=== PATIENT | male | born 1985 | race Caucasian/White ===

== ENCOUNTER 2016-08-01 19:58 | Inpatient (IN) | payer OTHER, MEDICAID ==
--- NOTE | 2016-08-01 20:07 | ED Physician Documentation ---
PD HPI ABD PAIN - Stated complaint Stated Complaint: SEVERE ABD PAIN - Chief complaint Chief Complaint: Abd Pain - History obtained from History obtained from: Patient - History of Present Illness Timing - onset: Last night (onset about 3 am last night of upper abd pain, fullness and nausea. Pain improves with vomiting) Timing - duration: Hours (about 16 hours) Timing - details: Abrupt onset, Still present Quality: Cramping, Aching, Fullness/distended, Pain Location: Other (mid upper abdomen mainly, with some feeling of bloating upper abdomen.) Radiation: No: Chest, Left flank, Right flank Improved by: Vomiting (relieves it temporarily) Worsened by: Eating (has been able to drink some fluids, but it does increase bloating. Has not eaten today.) Associated symptoms: Nausea, Vomiting. No: Fever, Hematemesis, Diarrhea, Constipation, Dysuria Similar symptoms before: Has not had sx before Recently seen: Not recently seen Review of Systems Constitutional: denies: Fever, Chills Nose: denies: Rhinorrhea / runny nose, Congestion Throat: denies: Sore throat Respiratory: denies: Cough GI: reports: Abdominal Pain, Abdominal Swelling, Nausea, Vomiting. denies: Constipation, Diarrhea, Bloody / black stool : denies: Dysuria, Frequency Skin: denies: Rash, Lesions Neurologic: reports: Generalized weakness. denies: Focal weakness, Numbness, Near syncope Endocrine: denies: Weight loss Immunocompromised: denies: Immunocompromised PD PAST MEDICAL HISTORY - Past Medical History Cardiovascular: None Respiratory: None Neuro: None Endocrine/Autoimmune: None GI: Other (had colonscopy several years ago for nonspecific abd pain, and finding of polyps only. No other problem. ) - Present Medications Home Medications: Ambulatory Orders Medication Instructions Recorded Confirmed No Known Home Medications [No 08/01/16 08/01/16 Known Home Medications] - Allergies Allergies/Adverse Reactions: Allergies Allergy/AdvReac Type Severity Reaction Status Date / Time No Known Drug Allergies Allergy Verified 08/01/16 20:04 PD ED PE NORMAL - Vitals Vital signs reviewed: Yes - General General: Alert and oriented X 3, Well developed/nourished, Other (appears in pain. Pale colored. Vomited during exam. ) - HEENT HEENT: PERRL (nonicteric), Pharynx benign. No: Moist mucous membranes - Neck Neck: Supple, no meningeal sign, No adenopathy - Cardiac Cardiac: RRR, No murmur - Respiratory Respiratory: Clear bilaterally - Abdomen Abdomen: No organomegaly, Other (some fullness of upper abdomen, with marked tenderness mid upper abdomen/epigastric area. Lower abd not tender. Bowel sounds increased in upper abdomen. No herniae noted umbilical nor inguinal. No abd scars seen. ) - Male Male : Deferred - Rectal Rectal: Deferred - Back Back: No CVA TTP - Derm Derm: Warm and dry, No rash, Other (pallor) - Extremities Extremities: No tenderness to palpate, No edema, No calf tenderness / cord - Neuro Neuro: Alert and oriented X 3, No motor deficit, Normal speech - Psych Psych: Normal mood, Normal affect Results - Vitals Vitals: Vital Signs - 24 hr 08/01/16 08/01/16 08/01/16 20:00 21:13 22:05 Temperature 36.0 C L Heart Rate 80 78 83 Respiratory 16 16 16 Rate Blood Pressure 140/91 H 126/79 100/62 O2 Saturation 100 99 98 Oxygen O2 Source Room air - Labs Labs: Laboratory Tests 08/01/16 08/01/16 08/01/16 20:20 20:20 20:20 WBC 14.3 H RBC 5.73 Hgb 16.2 Hct 49.0 MCV 85.4 MCH 28.3 MCHC 33.1 RDW 13.5 Plt Count 303 MPV 8.4 Neut # 12.5 H Lymph # 0.9 L [place] # 0.9 Eos # 0.0 Baso # 0.0 Absolute Nucleated RBC 0.00 Nucleated RBCs 0.0 Sodium 139 Potassium 4.0 Chloride 100 L Carbon Dioxide 26 Anion Gap 13.0 BUN 19 Creatinine 1.1 Estimated GFR (MDRD) 78 L Glucose 132 H Calcium 10.4 H Total Bilirubin 0.9 AST 37 ALT 32 Alkaline Phosphatase 78 Total Protein 9.4 H Albumin 5.3 Globulin 4.1 Albumin/Globulin Ratio 1.3 Lipase 42 H. pylori IgG Antibody Negative - Rads (name of study) abd CT Radiology: Prelim report reviewed (small bowel obstruction with transition in mid small bowel near pelvis. No perforation/free air. ) PD MEDICAL DECISION MAKING - ED course Complexity details: reviewed results, re-evaluated patient (pain improved with meds and fluids, but stock drier tender and some distension upper abdomen. ), considered differential, d/w patient, d/w family, d/w ent consultant (Dr. Mariee, automation qtp tester Surgery, who will come in and see the patient. ) Departure - Departure Disposition: 66 [facility] DC/Xfer Clinical Impression: Small bowel obstruction Abdominal pain Qualifiers: Abdominal location: upper abdomen, unspecified Qualified Code(s): R10.10 - Upper abdominal pain, unspecified Vomiting Qualifiers: Vomiting type: unspecified Vomiting Intractability: intractable Nausea presence : with nausea Qualified Code(s): R11.2 - Nausea with vomiting, unspecified Condition: Stable Record reviewed to determine appropriate education?: Yes
[2016-08-01] MEDS ORDERED: ONDANSETRON 4 MG/2 ML VIAL IVP STA (20:24)
[2016-08-01] MEDS ORDERED: SODIUM CHLORIDE 0.9% 1,000 ML IV ONE ×4 (20:24→21:55)
[2016-08-01] MEDS ORDERED: HYDROmorphone 1 MG/ML SYRINGE IVP STA ×2 (20:25→21:48)
[2016-08-01 20:31] LABS: BASOPHILS % (AUTO) 0.1 %; HGB - HEMOGLOBIN 16.2 g/dL (14.0-18.0); LYMPHOCYTES # (AUTO) 0.9 10^3/uL (1.5-3.5); LYMPHOCYTES % (AUTO) 6.1 %; MEAN CORPUSCULAR HEMOGLOBIN 28.3 pg (27.0-31.0); MEAN CORPUSCULAR HGB CONC 33.1 g/dL (32.0-36.0); MEAN CORPUSCULAR VOLUME 85.4 fL (80.0-94.0); MEAN PLATELET VOLUME 8.4 fL (7.4-11.4); MONOCYTES # (AUTO) 0.9 10^3/uL (0.0-1.0); MONOCYTES % (AUTO) 6.2 %; NEUTROPHILS # (AUTO) 12.5 10^3/uL (1.5-6.6); NEUTROPHILS % (AUTO) 87.6 %; RED BLOOD COUNT 5.73 10^6/uL (4.70-6.10); RED CELL DISTRIBUTION WIDTH 13.5 % (12.0-15.0); UNCORRECTED WHITE BLOOD COUNT 14.3 x10^3/uL; WHITE BLOOD COUNT 14.3 x10^3/uL (4.8-10.8)
[2016-08-01] MEDS ORDERED: HYDROmorphone 1 MG/ML SYRINGE ONE ×2 (20:35→21:55)
[2016-08-01] MEDS ORDERED: ONDANSETRON 4 MG/2 ML VIAL ONE (20:36)
[2016-08-01] MEDS ORDERED: SODIUM CHLORIDE FLUSH 0.9% 10 ML SYRINGE IVP ONE ×2 (20:36→21:55)
[2016-08-01 20:41] LABS: ALBUMIN/GLOBULIN RATIO 1.3 (1.0-2.2); BILIRUBIN,TOTAL 0.9 mg/dL (0.2-1.0); CALCIUM 10.4 mg/dL (8.5-10.3); CREATININE 1.1 mg/dL (0.6-1.2); TOTAL PROTEIN 9.4 g/dL (6.7-8.2)
[2016-08-01 20:45] LABS: H. PYLORI IGG ANTIBODY Negative (Negative); HPYLORI NEG QC Negative (Negative); HPYLORI POS QC POSITIVE (Positive)
[2016-08-01] MEDS ORDERED: IOPAMIDOL-300 100 ML VIAL IVP ONE (21:09)
--- NOTE | 2016-08-01 21:51 | CT Preliminary Report ---
Exam: CT Abdomen/Pelvis W/ IMPRESSION: Mid to distal small bowel obstruction with transition point in the mid pelvis. Small amou nt of free fluid in the pelvis. [facility] SITE ID: [id number]
--- NOTE | 2016-08-01 21:53 | CT Report ---
EXAM: CT ABDOMEN AND PELVIS EXAM DATE: 08/01/2016 09:12 PM. CLINICAL HISTORY: Upper abdomen pain abruptly today. COMPARISONS: None. TECHNIQUE: Routine helical CT imaging was performed through the abdomen and pelvis. IV contrast: 100 cc of Isovue-300. Enteric contrast: No. Reconstructions: Coronal and sagittal. In accordance with CT protocol optimization, one or more of the following dose reduction techniques w ere utilized for this exam: automated exposure control, adjustment of mA and/or KV based on patient s ize, or use of iterative reconstructive technique. FINDINGS: Lung Bases: Unremarkable. Liver: Normal. No masses. Gallbladder/Bile Ducts: Unremarkable. Spleen: Normal. Pancreas: Normal. Adrenal Glands: Normal. Kidneys: Normal. No masses or hydronephrosis. Peritoneal Cavity/Bowel: Dilated small bowel with transition to decompressed distal ileum and the mid pelvis. No free air or adenopathy. No masses or acute inflammatory process. The appendix is well vis ualized and normal. Pelvic Organs: Small amount of free fluid. Prostate and bladder are unremarkable. Vasculature: No aneurysms or other significant abnormality. Bones: No significant abnormality. Other: None. IMPRESSION: Mid to distal small bowel obstruction with transition point in the mid pelvis. Small amou nt of free fluid in the pelvis. [facility] Referring Provider Line: [phone] SITE ID: [id number]
[2016-08-01 22:52] LABS: INR 1.2 (0.8-1.2); PT - PROTHROMBIN TIME 13.2 secs (9.9-12.6)
--- NOTE | 2016-08-01 22:53 | HISTORY & PHYSICAL EXAMINATION ---
Chief Complaint - Chief Complaint Chief Complaint: Abdominal Pain History of Present Illness - Admitted From Admitted From:: ED - History Obtained From Records Reviewed: yes History obtained from: Patient and Patient's mother Exam Limitations: none - History of Present Illness HPI Comment/Other: 31 yo male with hx of Lower GI bleed with "benign polyps and hemorrhoid" found on colonoscopy 10 years ago in [place], C/o of 18 hours of sharp upper abdominal 8-10/10 non-radiating pain relieved with vomiting. Denies fevers. He took a vicodin which helped alittle at home. His last BM was early this am, and has not passed flatus since BM. No new foods or recent travels. 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 Denies any trauma growing up or recently, and mother states normal vaginal term delivery. Does have a same sex partner and states is monogamous and has only had this partner. Has never been tested for STD's Review of Systems - Constitutional Constitutional: denies: Fever - Eyes Eyes: reports: Corrective lenses. denies: Pain, Blurred vision - Ears, Nose & Throat Ears, Nose & Throat: denies: Hearing loss - Cardiovascular Cariovascular: denies: Chest pain - Respiratory Respiratory: denies: Cough, Wheezing, Hemoptysis, SOB at rest, SOB with exertion - Gastrointestinal Gastrointestinal: reports: Abdominal pain, Abdominal distention, Constipation, Vomiting, Bile emesis. denies: Diarrhea, Rectal bleeding, Bloody stools, Coffee grounds emesis - Genitourinary Genitourinary: denies: Dysuria, Urgency - Musculoskeletal Musculoskeletal: denies: Muscle pain - Integumentary Integumentary: denies: Rash - Psychiatric Psychiatric: denies: Depression, Anxiety - Endocrine Endocrine: denies: Polyuria, Polydypsia - Hematologic/Lymphatic Hematologic/Lymphatic: denies: Anemia - All Other Systems All Other Systems: reports: Reviewed and negative History - Past Medical History Cardiovascular: reports: None Respiratory: reports: None Neuro: reports: None Endocrine/Autoimmune: reports: None GI: reports: GI bleed, Colon polyps, Other (had colonscopy several years ago for nonspecific abd pain, and finding of polyps only. No other problem. ) HEENT: reports: None Psych: reports: None Musculoskeletal: reports: None Derm: reports: None MRSA Hx?: No Other Past Medical History: Pt report past hx of rectal bleeding of unknown cause - Past Surgical History General: reports: Colonoscopy - Family & Social History Family History: Mother: Alive and Well Family History Comment/Other: Mother denies any family history of Crohn's or UC, states Patients's ethnicity is mixed with Anabaptism & [place] Ancestry Meds/Allgy - Home Medications Home Medications: Ambulatory Orders Medication Instructions Recorded Confirmed No Known Home Medications [No 08/01/16 08/01/16 Known Home Medications] - Allergies Allergies/Adverse Reactions: Allergies Allergy/AdvReac Type Severity Reaction Status Date / Time No Known Drug Allergies Allergy Verified 08/01/16 20:04 Exam - Vital Signs Reviewed Vital Signs: Yes Vital Signs: Vital Signs x48h Temp Pulse Resp BP Pulse Ox 08/01/16 22:05 83 16 100/62 98 08/01/16 21:13 78 16 126/79 99 08/01/16 20:00 36.0 C L 80 16 140/91 H 100 - Physical Exam General Appearance: positive: Mild distress Eyes Bilateral: positive: EOMI ENT: positive: Dry mucous membranes Neck: positive: No JVD Respiratory: positive: Breath sounds nml Cardiovascular: positive: Regular rate & rhythm Peripheral Pulses: positive: 2+ Abdomen: positive: Tenderness (+hyper active BS, Distended, + Rebound & Guarding - Peritoneal abdomen, No Previous surgical scars noted. No hernias palpated) Rectal: positive: Non-tender, Stool - heme NEG (Scant stool in vault). negative : Hemorrhoid Back: negative: CVA tenderness (R), CVA tenderness (L) Skin: positive: Warm, Dry Extremities: positive: Non-tender. negative: Pedal edema, Calf tenderness, Ajki's sign/cords Neurologic/Psychiatric: positive: Oriented x3, CN's nml (2-12) Reflexes: Knee (R): 2+, Knee (L): 2+, Ankle (R): 2+, Ankle (L): 2+ Conclusion/Plan - Problem List (1) Small bowel obstruction Conclusion/Plan: 31 yo male with small bowel obstruction with peritoneal signs without prior history of abdominal surgery NPO NGT to LWS LR@ 150 mL/hr OR today for Laparoscopy possible exploratory laparotomy, possible bowel resection , possible appendectomy, possible ostomy - Lab Results Lab results reviewed: Yes Fish Bones: 08/01/16 20:20 08/01/16 20:20 - Diagnostic Imaging Results Diagnostic Imaging Results: positive: Read contemporaneously (IMPRESSION: Mid to distal small bowel obstruction with transition point in the mid pelvis. Small amount of free fluid in the pelvis.) Issues/Core Measures - Anticipated LOS Anticipated Stay Length: 2 or more midnights - DVT/VTE - Prophylaxis VTE/DVT Device ordered at admit?: Yes VTE/DVT Prophylaxis med ordered at admit?: No Not Ordered - Medical Reason: Contraindicated (To Go to OR tonight)
[2016-08-01 22:59] LABS: PARTIAL THROMBOPLASTIN TIME 28.2 secs (24.9-33.3)
[2016-08-01] MEDS ORDERED: PHENYLEPHRINE 10 MG/ML VIAL IV ONE (23:45)
[2016-08-01] MEDS ORDERED: fentaNYL 100 MCG/2 ML VIAL IVP ONE (23:45)
[2016-08-01] MEDS ORDERED: DEXAMETHASONE 4 MG/ML VIAL IVP ONE (23:45)
[2016-08-01] MEDS ORDERED: ACETAMINOPHEN 1,000 MG/100 ML VIAL IV ONE (23:45)
[2016-08-01] MEDS ORDERED: NEOSTIGMINE 1 MG/1 ML 10 ML MDV IVP ONE (23:45)
[2016-08-01] MEDS ORDERED: SUCCINYLCHOLINE 200 MG/10 ML VIAL IVP ONE (23:45)
[2016-08-01] MEDS ORDERED: MIDAZOLAM 2 MG/2 ML VIAL IVP ONE (23:45)
[2016-08-01] MEDS ORDERED: GLYCOPYRROLATE 1 MG/5 ML VIAL IVP ONE (23:45)
[2016-08-01] MEDS ORDERED: ONDANSETRON 4 MG/2 ML VIAL IVP ONE (23:45)
[2016-08-01] MEDS ORDERED: LIDOCAINE-MPF 2% 5 ML VIAL IM ONE (23:45)
[2016-08-01] MEDS ORDERED: ROCURONIUM 50 MG/5 ML VIAL IVP ONE (23:45)
[2016-08-01] MEDS ORDERED: PROPOFOL 200 MG/20 ML VIAL IVP ONE (23:45)
[2016-08-02] MEDS ORDERED: LACTATED RINGERS 1,000 ML IV ONE ×2 (00:03→00:45)
[2016-08-02] MEDS ORDERED: SODIUM CHLORIDE 0.9% 1,000 ML IV ONE ×3 (00:03→01:46)
[2016-08-02 00:05] LABS: BILIRUBIN,URINE NEGATIVE (NEGATIVE)
[2016-08-02 00:14] LABS: WBC,URINE 0-3 /HPF (0-3)
[2016-08-02] MEDS ORDERED: BUPIVACAINE 0.5%-EPI 1:200000 PF 30 ML VIAL SUBQ ONE ×2 (00:25)
[2016-08-02] MEDS ORDERED: SODIUM CHLORIDE FLUSH 0.9% 10 ML SYRINGE IVP PRN (03:44)
[2016-08-02] MEDS ORDERED: ONDANSETRON 4 MG/2 ML VIAL IVP PRN (03:44)
[2016-08-02] MEDS ORDERED: MEPERIDINE 50 MG/ML SYRINGE ONE (03:47)
--- NOTE | 2016-08-02 04:01 | OPERATIVE REPORT ---
Operative Report - General Admit Date: 08/01/16 Procedure Date: 08/02/16 Planned Procedure: Laparoscopy, possible Exploratory Laparotomy, possible Appendectomy Pre-Op Diagnosis: Small Bowel Obstruction Post Op Diagnosis: Foramen of [place] Incarcerated Hernia - Procedure Note Primary Surgeon: Kodi DEAN Anesthesia Provider: Kevin Veras CRNA Anesthesia Technique: General ET tube Pathology: Bacterial cultures taken, Drain/Tube Type: positive: Alejandro Rosales round drain Complications: None - Other Other Information/Narrative: Please see dictated note
[2016-08-02] MEDS: LACTATED RINGERS 1,000 ML IV SCH ×4 (04:40→18:59)
[2016-08-02] MEDS: ACETAMINOPHEN 1,000 MG/100 ML 100 ML IV SCH ×4 (04:52→22:09)
[2016-08-02] MEDS: HYDROmorphone 1 MG/ML SYRINGE IVP PRN ×2 (04:52→06:43)
[2016-08-02] MEDS: SODIUM CHLORIDE FLUSH 0.9% 10 ML SYRINGE IVP SCH ×3 (05:24→18:59)
[2016-08-02] MEDS: HEPARIN 5,000 UNIT/ML VIAL SUBQ SCH ×3 (05:46→21:07)
[2016-08-02] MEDS ORDERED: SODIUM CHLORIDE FLUSH 0.9% 10 ML SYRINGE IVP SCH (06:00)
[2016-08-02 06:59] LABS: BASOPHILS % (AUTO) 0.2 %; HCT - HEMATOCRIT 44.7 % (42.0-52.0); HGB - HEMOGLOBIN 14.6 g/dL (14.0-18.0); LYMPHOCYTES % (AUTO) 2.9 %; MEAN CORPUSCULAR HEMOGLOBIN 28.4 pg (27.0-31.0); MEAN CORPUSCULAR HGB CONC 32.7 g/dL (32.0-36.0); MEAN CORPUSCULAR VOLUME 86.9 fL (80.0-94.0); MEAN PLATELET VOLUME 9.4 fL (7.4-11.4); MONOCYTES % (AUTO) 7.2 %; NEUTROPHILS % (AUTO) 89.7 %; RED BLOOD COUNT 5.14 10^6/uL (4.70-6.10); RED CELL DISTRIBUTION WIDTH 13.7 % (12.0-15.0)
[2016-08-02 07:06] LABS: CALCIUM 7.4 mg/dL (8.5-10.3); CREATININE 0.8 mg/dL (0.6-1.2); POTASSIUM 3.9 mmol/L (3.5-5.0)
[2016-08-02 07:36] LABS: BAND NEUTROPHILS % (MANUAL) 6 %; BASOPHILS % (MANUAL) 1 %; LYMPHOCYTES % (MANUAL) 5 %; NEUTROPHILS % (MANUAL) 78 %; TOTAL CELLS COUNTED 100
[2016-08-02 07:39] LABS: NP AUTO DIFFERENTIAL? YES; NP MAN DIFFERENTIAL? NO
[2016-08-02] MEDS: POLYETHYLENE GLYCOL 3350 17 GM PACKET PO SCH (08:07)
[2016-08-02] MEDS: FAMOTIDINE 20 MG/50 ML 50 ML IV SCH ×2 (08:10→21:43)
[2016-08-02] MEDS ORDERED: BENZOCAINE/MENTHOL LOZENGE MM PRN (11:35)
[2016-08-02] MEDS ORDERED: BENZOCAINE/TETRACAINE/BUTAMBEN 20 GM TOP PRN (11:36)
[2016-08-02] MEDS ORDERED: diphenhydrAMINE INJ 50 MG/ML VIAL IVP PRN (12:34)
[2016-08-02] MEDS ORDERED: MORPHINE PCA 50 MG IV PRN ×2 (12:34→14:39)
--- NOTE | 2016-08-02 13:47 | PROVIDER PROGRESS NOTE ---
Subjective - General Admit Date: 08/01/16 Procedure Date: 08/02/16 Post Op Days: 0 Procedure Performed: Laparoscopy, Exploratory Laparotomy with internal hernia reduction - Review of Systems Wound/Incisions: positive: Dressing dry and intact Drain Type: NAEL Drain Output Description: serosanguenous Approximate mls Output: 95 General: positive: No symptoms HEENT: positive: No symptoms Pulmonary: positive: No symptoms Cardiovascular: positive: No symptoms Gastrointestinal: positive: Abdominal pain (Post operative appropriate) Genitourinary: positive: No symptoms Musculoskeletal: positive: No symptoms Skin: positive: No symptoms Psychiatric: positive: No symptoms (Patient seen bedside. Using IS. Pain controlled. No flatus.) All Other Systems: positive: Reviewed and negative Objective - Patient Data Reviewed Vital Signs: Yes Vital Signs: Vital Signs x48h Temp Pulse Resp BP Pulse Ox 08/02/16 12:14 37.0 C 91 16 114/71 95 08/02/16 08:14 36.7 C 96 16 113/71 97 08/02/16 06:14 36.7 C 83 16 115/72 97 Intake & Output: Intake and Output Totals x24h 07/31/16 08/01/16 08/02/16 23:59 23:59 23:59 Intake Total 396 Output Total 1245 Balance -849 - Lab Results Lab Results: 08/02/16 06:20 08/02/16 06:20 Other Lab Results: Lab Results x24hrs 08/02/16 08/02/16 08/01/16 Range/Units 06:20 06:20 23:04 WBC 21.0 H (4.8-10.8) x10^3/uL RBC 5.14 (4.70-6.10) 10^6/uL Hgb 14.6 (14.0-18.0) g/dL Hct 44.7 (42.0-52.0) % MCV 86.9 (80.0-94.0) fL MCH 28.4 (27.0-31.0) pg MCHC 32.7 (32.0-36.0) g/dL RDW 13.7 (12.0-15.0) % Plt Count 249 (130-450) 10^3/uL MPV 9.4 (7.4-11.4) fL Neut # Not Reportable Lymph # Not Reportable [place] # Not Reportable Eos # Not Reportable Baso # Not Reportable Absolute Nucleated RBC Not Reportable Total Counted 100 Band Neuts % (Manual) 6 (0 - 10) % Reactive Lymphs % (Man) 2 % Neutrophils # (Manual) 17.6 H (1.5-6.6) 10^3/uL Lymphocytes # (Manual) 1.5 (1.5-3.5) 10^3/uL Monocytes # (Manual) 1.7 H (0.0-1.0) 10^3/uL Basophils # (Manual) 0.2 H (0-0.1) 10^3/uL Nucleated RBCs Not Reportable Differential Comment MANUAL DIFFERENTIAL Sodium 138 (135-145) mmol/L Potassium 3.9 (3.5-5.0) mmol/L Chloride 107 (101-111) mmol/L Carbon Dioxide 21 (21-32) mmol/L Anion Gap 10.0 (6-13) BUN 12 (6-20) mg/dL Creatinine 0.8 (0.6-1.2) mg/dL Estimated GFR (MDRD) 112 (>89) Glucose 139 H (70-100) mg/dL Lactic Acid (0.5-2.2) mmol/L Calcium 7.4 L (8.5-10.3) mg/dL Urine Color YELLOW Urine Clarity CLEAR (CLEAR) Urine pH 6.0 (5.0-7.5) PH Ur Specific [place] 1.015 (1.002-1.030) Urine Protein NEGATIVE (NEGATIVE) mg/dL Urine Glucose (UA) NEGATIVE (NEGATIVE) mg/dL Urine Ketones 40 H (NEGATIVE) mg/dL Urine Occult Blood MODERATE H (NEGATIVE) Urine Nitrite NEGATIVE (NEGATIVE) Urine Bilirubin NEGATIVE (NEGATIVE) Urine Urobilinogen 0.2 (NORMAL) (NORMAL) E.U./dL Ur Leukocyte Esterase NEGATIVE (NEGATIVE) Urine RBC 0-5 (0-5) /HPF Urine WBC 0-3 (0-3) /HPF Ur Squamous Epith Cells NONE SEEN (<= Few) Urine Bacteria None Seen (None Seen) /HPF Blood Type Antibody Screen 08/01/16 08/01/16 Range/Units 22:50 22:50 WBC (4.8-10.8) x10^3/uL RBC (4.70-6.10) 10^6/uL Hgb (14.0-18.0) g/dL Hct (42.0-52.0) % MCV (80.0-94.0) fL MCH (27.0-31.0) pg MCHC (32.0-36.0) g/dL RDW (12.0-15.0) % Plt Count (130-450) 10^3/uL MPV (7.4-11.4) fL Neut # Lymph # [place] # Eos # Baso # Absolute Nucleated RBC Total Counted Band Neuts % (Manual) (0 - 10) % Reactive Lymphs % (Man) % Neutrophils # (Manual) (1.5-6.6) 10^3/uL Lymphocytes # (Manual) (1.5-3.5) 10^3/uL Monocytes # (Manual) (0.0-1.0) 10^3/uL Basophils # (Manual) (0-0.1) 10^3/uL Nucleated RBCs Differential Comment Sodium (135-145) mmol/L Potassium (3.5-5.0) mmol/L Chloride (101-111) mmol/L Carbon Dioxide (21-32) mmol/L Anion Gap (6-13) BUN (6-20) mg/dL Creatinine (0.6-1.2) mg/dL Estimated GFR (MDRD) (>89) Glucose (70-100) mg/dL Lactic Acid 0.9 (0.5-2.2) mmol/L Calcium (8.5-10.3) mg/dL Urine Color Urine Clarity (CLEAR) Urine pH (5.0-7.5) PH Ur Specific [place] (1.002-1.030) Urine Protein (NEGATIVE) mg/dL Urine Glucose (UA) (NEGATIVE) mg/dL Urine Ketones (NEGATIVE) mg/dL Urine Occult Blood (NEGATIVE) Urine Nitrite (NEGATIVE) Urine Bilirubin (NEGATIVE) Urine Urobilinogen (NORMAL) E.U./dL Ur Leukocyte Esterase (NEGATIVE) Urine RBC (0-5) /HPF Urine WBC (0-3) /HPF Ur Squamous Epith Cells (<= Few) Urine Bacteria (None Seen) /HPF Blood Type O POSITIVE Antibody Screen NEGATIVE - Current Medications Current Medications: Current Medications Generic Name Dose Route Start Last Admin Trade Name Freq PRN Reason Stop Dose Admin Benzocaine/Butamben/Tetracaine HCl 2 sprays 08/02/16 11:36 08/02/16 11:47 Cetacaine [place] TOP 2 sprays Q6HR PRN Administration NEEDED PER PROVIDER ORDERS Heparin Sodium (Porcine) 5,000 unit 08/02/16 06:00 08/02/16 05:46 SUBQ Not Given TID IVELISSE Lactated Ringer's 1,000 mls @ 150 mls/hr 08/01/16 23:00 08/02/16 11:52 Lr IV Not Given .Q6H40M IVELISSE Famotidine 50 mls @ 100 mls/hr 08/02/16 09:00 08/02/16 08:10 Pepcid 20 Mg/50 Ml IV 100 mls/hr BID IVELISSE Administration Acetaminophen 100 mls @ 400 mls/hr 08/02/16 04:00 08/02/16 11:54 Ofirmev IV 400 mls/hr Q6H IVELISSE Administration Morphine Sulfate/Sodium Chloride 0 mg 08/02/16 12:34 08/02/16 13:18 Morphine Quality Engineer Medical Device (Use Quality Engineer Medical Device Order Set) IV 50 mg INSTRUCTOR DANCING PRN Administration PAIN Protocol Polyethylene Glycol 17 gm 08/02/16 09:00 08/02/16 08:07 Miralax PO Not Given DAILY IVELISSE Sodium Chloride 10 ml 08/02/16 06:00 08/02/16 05:24 Normal Saline Flush 0.9% IVP Not Given Q8HR IVELISSE Throat Lozenges 1 lozenge 08/02/16 11:35 08/02/16 11:46 Cepacol MM 1 lozenge Q2HR PRN Administration Mouth Sore Pain - Physical Exam Wound/Incisions: positive: Healing well General Appearance: positive: No acute distress Eyes Bilateral: positive: EOMI ENT: positive: No signs of dehydration Neck: positive: No JVD Respiratory: positive: Breath sounds nml Cardiovascular: positive: Regular rate & rhythm Abdomen: positive: No distention (+Bs, hypoactive,TTP post op appropriate, No guarding or rebound. NAEL drain in place serosanguenous) Impression/Plan - Problem List Problem List: 31 yo male s/laparoscopy and exploratory laparotmy with reduction of Foramen of [place] incarcerated hernia sips and chips Pain control OOB to chair, continue IS PT consult appreciated Social work consult appreciated
[2016-08-02] MEDS: KETOROLAC 15 MG/ML VIAL IVP PRN (19:00)
[2016-08-02] MEDS: METOCLOPRAMIDE 10 MG/2 ML VIAL IVP SCH ×2 (20:19→23:38)
[2016-08-03] MEDS: ACETAMINOPHEN 1,000 MG/100 ML 100 ML IV SCH ×4 (03:29→22:37)
[2016-08-03] MEDS: METOCLOPRAMIDE 10 MG/2 ML VIAL IVP SCH ×2 (05:21→12:31)
[2016-08-03] MEDS: SODIUM CHLORIDE FLUSH 0.9% 10 ML SYRINGE IVP SCH ×3 (05:34→22:37)
[2016-08-03] MEDS: LACTATED RINGERS 1,000 ML IV SCH (05:39)
[2016-08-03] MEDS: FAMOTIDINE 20 MG/50 ML 50 ML IV SCH ×2 (09:28→22:37)
[2016-08-03] MEDS: HEPARIN 5,000 UNIT/ML VIAL SUBQ SCH ×2 (09:28→22:37)
[2016-08-03] MEDS: POLYETHYLENE GLYCOL 3350 17 GM PACKET PO SCH (09:35)
[2016-08-03] MEDS ORDERED: HYDROmorphone PCA 10 MG IV PRN (13:34)
--- NOTE | 2016-08-03 13:37 | PROVIDER PROGRESS NOTE ---
Subjective - General Admit Date: 08/01/16 Procedure Date: 08/02/16 Post Op Days: 1 Procedure Performed: Laparoscopy, Exploratory Laparotomy with internal hernia reduction - Review of Systems Wound/Incisions: positive: Dressing dry and intact Drain Type: NAEL Drain Output Description: serosanguenous Approximate mls Output: 140 General: positive: No symptoms, Weakness HEENT: positive: No symptoms Pulmonary: positive: No symptoms Cardiovascular: positive: No symptoms Gastrointestinal: positive: Abdominal pain (Post operative appropriate) Genitourinary: positive: No symptoms Musculoskeletal: positive: No symptoms Skin: positive: No symptoms Psychiatric: positive: No symptoms All Other Systems: positive: Reviewed and negative (Patient seen& examined at [facility], C/o of abdominal pain 3-/, and some nausea with out vomiting. c/o of belching. Ambulating occasionally and not using IS as often as should.) Objective - Patient Data Reviewed Vital Signs: Yes Vital Signs: Vital Signs x48h Temp Pulse Resp BP Pulse Ox 08/03/16 10:57 37.1 C 69 16 135/72 H 98 08/03/16 10:00 16 08/03/16 08:46 37.0 C 68 16 114/76 98 Intake & Output: Intake and Output Totals x24h 08/01/16 08/02/16 08/03/16 23:59 23:59 23:59 Intake Total 1509 1350 Output Total 2710 940 Balance -1201 410 - Lab Results Lab Results: 08/02/16 06:20 08/02/16 06:20 - Current Medications Current Medications: Current Medications Generic Name Dose Route Start Last Admin Trade Name Freq PRN Reason Stop Dose Admin Benzocaine/Butamben/Tetracaine HCl 2 sprays 08/02/16 11:36 08/02/16 11:47 Cetacaine [place] TOP 2 sprays Q6HR PRN Administration NEEDED PER PROVIDER ORDERS Heparin Sodium (Porcine) 5,000 unit 08/02/16 21:00 08/03/16 09:28 SUBQ 5,000 unit BID IVELISSE Administration Famotidine 50 mls @ 100 mls/hr 08/02/16 09:00 08/03/16 09:28 Pepcid 20 Mg/50 Ml IV 100 mls/hr BID IVELISSE Administration Acetaminophen 100 mls @ 400 mls/hr 08/02/16 04:00 08/03/16 11:02 Ofirmev IV 400 mls/hr Q6H IVELISSE Administration Ketorolac Tromethamine 15 mg 08/02/16 18:32 08/02/16 19:00 Toradol Inj IVP 08/07/16 18:31 15 mg Q6HR PRN Administration PAIN Ondansetron HCl 4 mg 08/02/16 03:44 08/03/16 09:55 Zofran Inj IVP 4 mg Q6H PRN Administration Nausea / Vomiting Polyethylene Glycol 17 gm 08/02/16 09:00 08/03/16 09:35 Miralax PO Not Given DAILY IVELISSE Sodium Chloride 10 ml 08/02/16 06:00 08/03/16 05:34 Normal Saline Flush 0.9% IVP Not Given Q8HR IVELISSE Throat Lozenges 1 lozenge 08/02/16 11:35 08/02/16 11:46 Cepacol MM 1 lozenge Q2HR PRN Administration Mouth Sore Pain - Physical Exam Wound/Incisions: positive: Dressing dry and intact General Appearance: positive: No acute distress, Alert Eyes Bilateral: positive: EOMI ENT: positive: No signs of dehydration Neck: positive: No JVD Respiratory: positive: Breath sounds nml Cardiovascular: positive: Regular rate & rhythm Abdomen: positive: No distention (+BS hypoactive, ND, no rebound or guarding, surgical dressing intact.) Impression/Plan - Problem List Problem List: 31 yo POD#1 for reduction of internal hernia Continue ice chips Encourage ambulation, oob to chair and IS use SCDS, HSQ & GI prophylaxis
[2016-08-03] MEDS: SIMETHICONE CHEW 80 MG TABLET PO PRN ×2 (14:08→22:37)
[2016-08-03] MEDS: D5.45NS W/20 MEQ KCL 1,000 ML IV SCH (14:08)
[2016-08-03] MEDS: KETOROLAC 15 MG/ML VIAL IVP PRN (22:37)
[2016-08-04] MEDS: D5.45NS W/20 MEQ KCL 1,000 ML IV SCH ×3 (00:03→21:19)
[2016-08-04] MEDS: ACETAMINOPHEN 1,000 MG/100 ML 100 ML IV SCH ×3 (04:35→16:26)
[2016-08-04] MEDS: SODIUM CHLORIDE FLUSH 0.9% 10 ML SYRINGE IVP SCH ×3 (06:17→21:45)
[2016-08-04 06:20] LABS: BASOPHILS % (AUTO) 0.5 %; EOSINOPHILS # (AUTO) 0.2 10^3/uL (0.0-0.7); EOSINOPHILS % (AUTO) 2.7 %; HCT - HEMATOCRIT 38.9 % (42.0-52.0); HGB - HEMOGLOBIN 12.8 g/dL (14.0-18.0); LYMPHOCYTES # (AUTO) 1.6 10^3/uL (1.5-3.5); LYMPHOCYTES % (AUTO) 20.9 %; MEAN CORPUSCULAR HEMOGLOBIN 28.4 pg (27.0-31.0); MEAN CORPUSCULAR HGB CONC 32.8 g/dL (32.0-36.0); MEAN CORPUSCULAR VOLUME 86.5 fL (80.0-94.0); MEAN PLATELET VOLUME 8.2 fL (7.4-11.4); MONOCYTES % (AUTO) 13.3 %; NEUTROPHILS # (AUTO) 4.9 10^3/uL (1.5-6.6); NEUTROPHILS % (AUTO) 62.6 %; RED BLOOD COUNT 4.49 10^6/uL (4.70-6.10); RED CELL DISTRIBUTION WIDTH 13.9 % (12.0-15.0); UNCORRECTED WHITE BLOOD COUNT 7.9 x10^3/uL; WHITE BLOOD COUNT 7.9 x10^3/uL (4.8-10.8)
[2016-08-04 06:33] LABS: CALCIUM 7.9 mg/dL (8.5-10.3); CREATININE 0.8 mg/dL (0.6-1.2); PHOSPHORUS 1.6 mg/dL (2.5-4.6); POTASSIUM 3.5 mmol/L (3.5-5.0)
--- NOTE | 2016-08-04 08:04 | OPERATIVE REPORT ---
DATE OF SURGERY: 08/02/2016 00:00:00 PREOPERATIVE DIAGNOSIS: Small bowel obstruction. POSTOPERATIVE DIAGNOSIS: Foramen of [place] incarcerated hernia. PLANNED PROCEDURE: Laparoscopy, possible exploratory laparotomy, possible appendectomy, possible ostomy. SURGEON: Imtiaz Mariee DO ANESTHESIA PROVIDER: Kevin Veras CRNA ANESTHESIA TYPE: General endotracheal tube. ESTIMATED BLOOD LOSS: 10 mL. URINE OUTPUT: 350 mL. NG TUBE: 1000 mL. INTRAVENOUS FLUIDS: 2000 mL of lactated Ringer's. INDICATIONS: This is a 31-year-old male with a history of lower GI bleeding, with benign polyps and hemorrhoids found on colonoscopy 10 years ago in [place]. He complained of 18 hours of sharp, upper abdominal, 8/10 nonradiating pain, relieved with vomiting. He denies any fevers. He tried taking a Vicodin at home, which helped a little. His last bowel movement was earlier this a.m.; he had not passed flatus since his bowel movement. There were no new foods or recent travels. 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 He does recall that a few days before at work he was reaching over a counter and performed a twisting motion and felt a "muscle tear". He denied any trauma, growing up or recently, and his mother states that he was a normal vaginal term delivery. He does have a same sex partner and states he is monogamous and has only been with 1 partner. He has never been tested for any STDs. WBCs on admission were 14.[address] scan of the abdomen and pelvis showed a mid to distal small-bowel obstruction with a transposition point in the mid pelvis with a small amount of free fluid in the pelvis. The risks of surgery including, but not limited to infection, bleeding, perforation, other organ injury, possible ostomy placement, scarring, abscess formation, risk of during the operation were discussed, and all questions were answered. The patient was agreeable to the procedure and signed preoperative informed consent. DESCRIPTION OF PROCEDURE: The patient was taken to the operative suite and placed in a supine position under general anesthesia per the Anesthesia department. A Greenberg catheter was placed preoperatively. He had previously received Zosyn and received Ancef perioperatively. The abdomen was prepped and draped in the usual sterile fashion. A timeout was completed verifying the correct patient, procedure, site, positioning, and special equipment prior to beginning the procedure. An NG tube was placed by Anesthesia. A Stephen entry was performed periumbilically, and a 12 mm port was placed under direct vision. A 5 mm port was placed under direct vision in the left lower quadrant. Upon entering the abdomen, there were no signs of injury from the Stephen entry, or any of the other trocar site entries. The bowel was noted to be dilated. Attention was turned to the normal appearing cecum, where the appendix was identified and appeared to be normal . At this time, it was determined that the bowel was too dilated to safely be inspected laparoscopically, and the procedure was converted to an open procedure. A midline vertical laparotomy incision was made with a #10 blade scalpel supraumbilical to infraumbilical and extended as needed. Once divided, the anterior abdominal cavity was accessed. The bowel was then protected as the rest of the abdominal wall was opened in the midline. The Bookwalter was placed , self-retaining retractor, and the bowel was eviscerated from the abdomen and examined from the ileocecal valve to the ligament of Treitz. There was a segment of mid bowel that was incarcerated through the foramen of Deondre to behind the stomach. This bowel was gently reduced from the opening. Upon further inspection, the bowel was deemed viable. Mesentery appeared typical. At this point, the NG tube began to drain the contents of the small bowel, and the bowel was milked towards the NG tube and decompressed. The bowel was again run from ileocecal valve to the ligament of Treitz 4 more times, and all of the bowel appeared healthy. There was a 14 cm segment of bowel near the ileocecal valve of the terminal ileum that appeared slow to peristalse which was not part of the incarcerated hernia; however, upon gently warming with warm saline and watchful waiting, the bowel perked up in about 5 minutes and begin peristalsing. The entire length of bowel looked healthy and without injury and viable. The bowel was then replaced into the abdomen. The abdomen was then irrigated with warm saline and suctioned. A 14-Czech round NAEL was placed and sutured to the skin. The omentum was used to cover the intestines. The abdominal wall and fascial layer was closed using 2 running looped PDS sutures, meeting in the midline, along with interrupted 0 Vicryl sutures with good approximation of both the abdominal fascia. Additional sterile saline was used to irrigate the subcutaneous fat, and then the skin was closed with sequential sterile monica and light iodoform packing. Sterile dressing was then applied, and the skin was cleansed, and the patient was awakened from anesthesia without difficulty and extubated in the operating room, and he was transferred to the PACU in stable condition. COUNTS: All lap and instrument counts were correct. JOB #: [id number] EXT JOB #:[id number] [facility]
[2016-08-04] MEDS: FAMOTIDINE 20 MG/50 ML 50 ML IV SCH ×2 (08:48→21:19)
[2016-08-04] MEDS: HEPARIN 5,000 UNIT/ML VIAL SUBQ SCH ×2 (08:48→21:47)
[2016-08-04] MEDS: POLYETHYLENE GLYCOL 3350 17 GM PACKET PO SCH (08:49)
--- NOTE | 2016-08-04 09:43 | PROVIDER PROGRESS NOTE ---
Subjective - General Admit Date: 08/01/16 Procedure Date: 08/02/16 Post Op Days: 2 Procedure Performed: Laparoscopy, Exploratory Laparotomy with internal hernia reduction - Review of Systems Wound/Incisions: positive: Dressing dry and intact. negative: Erythema Drain Type: NAEL Drain Output Description: serosanguenous Approximate mls Output: 80 General: positive: No symptoms, Weakness HEENT: positive: No symptoms Pulmonary: positive: No symptoms Cardiovascular: positive: No symptoms Gastrointestinal: positive: Abdominal pain (Post operative appropriate) Genitourinary: positive: No symptoms Musculoskeletal: positive: No symptoms Skin: positive: No symptoms Psychiatric: positive: No symptoms All Other Systems: positive: Reviewed and negative - Other Other Information/Narrative: Patient seen and examined. Ambulating well and using IS. No nausea or vomiting. Feels better than yesterday. No flatus or bm Objective - Patient Data Reviewed Vital Signs: Yes Vital Signs: Vital Signs x48h Resp 08/04/16 01:58 16 Intake & Output: Intake and Output Totals x24h 08/02/16 08/03/16 08/04/16 23:59 23:59 23:59 Intake Total 1509 1350 824 Output Total 2710 1010 80 Balance -1201 340 744 - Lab Results Lab Results: 08/04/16 06:00 08/04/16 06:00 Other Lab Results: Lab Results x24hrs 08/04/16 08/04/16 Range/Units 06:00 06:00 WBC 7.9 (4.8-10.8) x10^3/uL RBC 4.49 L (4.70-6.10) 10^6/uL Hgb 12.8 L (14.0-18.0) g/dL Hct 38.9 L (42.0-52.0) % MCV 86.5 (80.0-94.0) fL MCH 28.4 (27.0-31.0) pg MCHC 32.8 (32.0-36.0) g/dL RDW 13.9 (12.0-15.0) % Plt Count 216 (130-450) 10^3/uL MPV 8.2 (7.4-11.4) fL Neut # 4.9 (1.5-6.6) 10^3/uL Lymph # 1.6 (1.5-3.5) 10^3/uL [place] # 1.0 (0.0-1.0) 10^3/uL Eos # 0.2 (0.0-0.7) 10^3/uL Baso # 0.0 (0.0-0.1) 10^3/uL Absolute Nucleated RBC 0.00 x10^3/uL Nucleated RBCs 0.0 /100WBC Sodium 138 (135-145) mmol/L Potassium 3.5 (3.5-5.0) mmol/L Chloride 104 (101-111) mmol/L Carbon Dioxide 28 (21-32) mmol/L Anion Gap 6.0 (6-13) BUN 6 (6-20) mg/dL Creatinine 0.8 (0.6-1.2) mg/dL Estimated GFR (MDRD) 112 (>89) Glucose 113 H (70-100) mg/dL Calcium 7.9 L (8.5-10.3) mg/dL Phosphorus 1.6 L (2.5-4.6) mg/dL Magnesium 2.0 (1.7-2.8) mg/dL - Current Medications Current Medications: Current Medications Generic Name Dose Route Start Last Admin Trade Name Freq PRN Reason Stop Dose Admin Benzocaine/Butamben/Tetracaine HCl 2 sprays 08/02/16 11:36 08/02/16 11:47 Cetacaine [place] TOP 2 sprays Q6HR PRN Administration NEEDED PER PROVIDER ORDERS Heparin Sodium (Porcine) 5,000 unit 08/02/16 21:00 08/04/16 08:48 SUBQ 5,000 unit BID IVELISSE Administration Hydromorphone HCl 10 mg 08/03/16 13:34 08/03/16 15:07 Dilaudid Facilities Engineering Manager (Use Facilities Engineering Manager Order Set) IV 10 mg PRN PRN Administration PAIN Protocol Famotidine 50 mls @ 100 mls/hr 08/02/16 09:00 08/04/16 08:48 Pepcid 20 Mg/50 Ml IV 100 mls/hr BID IVELISSE Administration Acetaminophen 100 mls @ 400 mls/hr 08/02/16 04:00 08/04/16 04:35 Ofirmev IV 400 mls/hr Q6H IVELISSE Administration Potassium Chloride/Dextrose/Sod Cl 1,000 mls @ 100 mls/hr 08/03/16 14:00 00:03 D5.45ns W/20 Meq Kcl IV 100 mls/hr .Q10H IVELISSE Administration Ketorolac Tromethamine 15 mg 08/02/16 18:32 08/03/16 22:37 Toradol Inj IVP 08/07/16 18:31 15 mg Q6HR PRN Administration PAIN Ondansetron HCl 4 mg 08/02/16 03:44 08/03/16 09:55 Zofran Inj IVP 4 mg Q6H PRN Administration Nausea / Vomiting Polyethylene Glycol 17 gm 08/02/16 09:00 08/04/16 08:49 Miralax PO 17 gm DAILY IVELISSE Administration Simethicone 80 mg 08/03/16 13:30 08/03/16 22:37 Mylicon PO 80 mg Q6HR PRN Administration Gas Sodium Chloride 10 ml 08/02/16 06:00 08/04/16 06:17 Normal Saline Flush 0.9% IVP Not Given Q8HR IVELISSE Throat Lozenges 1 lozenge 08/02/16 11:35 08/02/16 11:46 Cepacol MM 1 lozenge Q2HR PRN Administration Mouth Sore Pain - Physical Exam Wound/Incisions: positive: Drainage (trace serosanguenous drainage. No erythema or fluctuance. Fresh iodoform packing placed.) General Appearance: positive: No acute distress, Alert Eyes Bilateral: positive: EOMI ENT: positive: No signs of dehydration Neck: positive: Nml inspection Respiratory: positive: Breath sounds nml Cardiovascular: positive: Regular rate & rhythm Abdomen: positive: Tenderness (+Bs, hypoactive, minimal tenderness. Mild distention, no rebound or guarding) Back: positive: Nml inspection Skin: positive: Warm, Dry Extremities: positive: Non-tender Neurologic/Psychiatric: positive: Oriented x3, CN's nml (2-12) Impression/Plan - Problem List Problem List: 31 yo male s/p internal hernia reduction POD#2 Will advance diet as tolerated Continue IS and ambulation. Pain control
[2016-08-04] MEDS ORDERED: HYDROmorphone PCA 10 MG IV PRN (09:47)
[2016-08-04] MEDS: SIMETHICONE CHEW 80 MG TABLET PO PRN (16:26)
[2016-08-04] MEDS ORDERED: METOCLOPRAMIDE 10 MG/2 ML VIAL IVP PRN (19:10)
[2016-08-04] MEDS ORDERED: POTASSIUM PHOSPHATE 15 MMOL in SODIUM CHLORIDE 0.9% 250 ML IV SCH (20:00)
[2016-08-04] MEDS: SODIUM CHLORIDE FLUSH 0.9% 10 ML SYRINGE IVP PRN (20:08)
[2016-08-04] MEDS: METOCLOPRAMIDE 10 MG/2 ML VIAL IVP SCH (20:08)
[2016-08-04] MEDS: MAG HYDROX/AL HYDROX/SIMETH 30 ML UDC PO PRN (20:16)
[2016-08-05] MEDS ORDERED: METOCLOPRAMIDE 10 MG/2 ML VIAL IVP SCH
[2016-08-05] MEDS: METOCLOPRAMIDE 10 MG/2 ML VIAL IVP SCH ×5 (00:07→23:57)
[2016-08-05] MEDS: D5.45NS W/20 MEQ KCL 1,000 ML IV SCH ×2 (06:19→13:20)
[2016-08-05 06:26] LABS: CALCIUM 8.3 mg/dL (8.5-10.3); CREATININE 0.8 mg/dL (0.6-1.2); MAGNESIUM 1.9 mg/dL (1.7-2.8); PHOSPHORUS 2.7 mg/dL (2.5-4.6); POTASSIUM 3.5 mmol/L (3.5-5.0)
[2016-08-05] MEDS: SODIUM CHLORIDE FLUSH 0.9% 10 ML SYRINGE IVP SCH ×3 (06:26→21:15)
[2016-08-05] MEDS: HEPARIN 5,000 UNIT/ML VIAL SUBQ SCH ×2 (09:21→21:14)
[2016-08-05] MEDS: FAMOTIDINE 20 MG/50 ML 50 ML IV SCH ×2 (09:21→21:14)
[2016-08-05] MEDS: POTASSIUM CHLOR 10 MEQ/100 ML 100 ML IV SCH ×4 (13:20→19:49)
--- NOTE | 2016-08-05 14:20 | PROVIDER PROGRESS NOTE ---
Subjective - General Admit Date: 08/01/16 Procedure Date: 08/02/16 Post Op Days: 3 Procedure Performed: Laparoscopy, Exploratory Laparotomy with internal hernia reduction - Review of Systems Wound/Incisions: positive: Dressing dry and intact, No drainage Drain Type: NAEL Drain Output Description: serosanguenous Approximate mls Output: 70 General: positive: No symptoms, Weakness HEENT: positive: No symptoms Pulmonary: positive: No symptoms Cardiovascular: positive: No symptoms Gastrointestinal: positive: Nausea, Abdominal pain (Post operative appropriate) Genitourinary: positive: No symptoms Musculoskeletal: positive: No symptoms Skin: positive: No symptoms Psychiatric: positive: No symptoms All Other Systems: positive: Reviewed and negative - Other Other Information/Narrative: 31 yo male POD #3 s/p ex lap with small bowel internal hernia reduction for Foramen of [place] internal hernia OOb to chair Advance diet as tolerated Objective - Patient Data Vital Signs: Vital Signs x48h Temp Pulse Resp BP Pulse Ox 08/05/16 07:53 37.4 C 83 17 122/82 H 99 Intake & Output: Intake and Output Totals x24h 08/03/16 08/04/16 08/05/16 23:59 23:59 23:59 Intake Total 1350 2495 1633 Output Total 1010 925 895 Balance 340 1570 738 - Lab Results Lab Results: 08/04/16 06:00 08/05/16 05:15 Other Lab Results: Lab Results x24hrs 08/05/16 Range/Units 05:15 Sodium 138 (135-145) mmol/L Potassium 3.5 (3.5-5.0) mmol/L Chloride 104 (101-111) mmol/L Carbon Dioxide 26 (21-32) mmol/L Anion Gap 8.0 (6-13) BUN 6 (6-20) mg/dL Creatinine 0.8 (0.6-1.2) mg/dL Estimated GFR (MDRD) 112 (>89) Glucose 122 H (70-100) mg/dL Calcium 8.3 L (8.5-10.3) mg/dL Phosphorus 2.7 (2.5-4.6) mg/dL Magnesium 1.9 (1.7-2.8) mg/dL - Current Medications Current Medications: Current Medications Generic Name Dose Route Start Last Admin Trade Name Freq PRN Reason Stop Dose Admin Al Hydroxide/Mg Hydroxide 30 ml 08/04/16 19:26 08/04/16 20:16 Mylanta Plus PO 30 ml Q6HR PRN Administration Gas Benzocaine/Butamben/Tetracaine HCl 2 sprays 08/02/16 11:36 08/02/16 11:47 Cetacaine [place] TOP 2 sprays Q6HR PRN Administration NEEDED PER PROVIDER ORDERS Heparin Sodium (Porcine) 5,000 unit 08/02/16 21:00 08/05/16 09:21 SUBQ 5,000 unit BID IVELISSE Administration Famotidine 50 mls @ 100 mls/hr 08/02/16 09:00 08/05/16 09:21 Pepcid 20 Mg/50 Ml IV 100 mls/hr BID IVELISSE Administration Potassium Chloride/Dextrose/Sod Cl 1,000 mls @ 100 mls/hr 08/03/16 14:00 13:20 D5.45ns W/20 Meq Kcl IV 100 mls/hr .Q10H IVELISSE Administration Potassium Chloride 100 mls @ 100 mls/hr 08/05/16 13:00 08/05/16 13:20 Potassium Chloride IV 08/05/16 16:59 100 mls/hr Q1H IVELISSE Administration Ketorolac Tromethamine 15 mg 08/02/16 18:32 08/03/16 22:37 Toradol Inj IVP 08/07/16 18:31 15 mg Q6HR PRN Administration PAIN Metoclopramide HCl 5 mg 08/04/16 19:39 08/05/16 13:20 Reglan Inj IVP 08/06/16 19:38 5 mg Q6HR IVELISSE Administration Ondansetron HCl 4 mg 08/02/16 03:44 08/03/16 09:55 Zofran Inj IVP 4 mg Q6H PRN Administration Nausea / Vomiting Sodium Chloride 10 ml 08/02/16 03:44 08/04/16 20:08 Normal Saline Flush 0.9% IVP 10 ml PRN PRN Administration NEEDED PER PROVIDER ORDERS Sodium Chloride 10 ml 08/02/16 06:00 08/05/16 13:55 Normal Saline Flush 0.9% IVP Not Given Q8HR IVELISSE Throat Lozenges 1 lozenge 08/02/16 11:35 08/02/16 11:46 Cepacol MM 1 lozenge Q2HR PRN Administration Mouth Sore Pain Impression/Plan - Problem List Problem List: 31 yo male POD#3 s/p Ex lap with small bowel hernia reduction for foramen of sampson hernia Advance diet as tolerated OOB to chair po pain control DVT prophylaxis electrolyte replacement am bmp
[2016-08-05] MEDS ORDERED: HYDROmorphone 1 MG/ML SYRINGE IVP PRN (14:22)
[2016-08-05] MEDS ORDERED: HYDROcod/ACETAM 5/325 MG TABLET PO PRN (14:22)
[2016-08-05] MEDS ORDERED: IBUPROFEN 400 MG TABLET PO PRN (14:22)
[2016-08-05] MEDS ORDERED: POTASSIUM CHLOR 10 MEQ/100 ML 100 ML IV SCH (20:00)
[2016-08-05] MEDS: SODIUM CHLORIDE FLUSH 0.9% 10 ML SYRINGE IVP PRN (23:57)
[2016-08-06] MEDS: METOCLOPRAMIDE 10 MG/2 ML VIAL IVP SCH ×3 (06:02→21:31)
[2016-08-06] MEDS: SODIUM CHLORIDE FLUSH 0.9% 10 ML SYRINGE IVP SCH ×3 (06:02→21:33)
[2016-08-06 06:10] LABS: CALCIUM 9.2 mg/dL (8.5-10.3); CREATININE 0.8 mg/dL (0.6-1.2); POTASSIUM 4.2 mmol/L (3.5-5.0)
--- NOTE | 2016-08-06 07:11 | PROVIDER PROGRESS NOTE ---
Subjective - General Admit Date: 08/01/16 Procedure Date: 08/02/16 Post Op Days: 4 Procedure Performed: Laparoscopy, Exploratory Laparotomy with internal hernia reduction - Review of Systems Wound/Incisions: positive: Dressing dry and intact, No drainage Drain Type: NAEL Drain Output Description: serosanguenous Approximate mls Output: 70 General: positive: No symptoms, Weakness HEENT: positive: No symptoms Pulmonary: positive: No symptoms Cardiovascular: positive: No symptoms Gastrointestinal: positive: Nausea, Abdominal pain (Post operative appropriate) Genitourinary: positive: No symptoms Musculoskeletal: positive: No symptoms Skin: positive: No symptoms Psychiatric: positive: No symptoms All Other Systems: positive: Reviewed and negative - Other Other Information/Narrative: Patient seen at bedside. Had a few small bowel movements yesterday. Has c/o of some nausea though tolerating liquids. Has been refusing various medications and treatments as per RN's . Has been bearing down over a bucket insistent on having a bm yesterday. Patient instructed that he cannot [place] the awakening of his bowels and straining too much increased abdominal pressure and could compromise his wound. No other events reported. Objective - Patient Data Reviewed Vital Signs: Yes Vital Signs: Vital Signs x48h Temp Pulse Resp BP Pulse Ox 08/06/16 00:05 37.2 C 76 16 129/78 100 Intake & Output: Intake and Output Totals x24h 08/04/16 08/05/16 08/06/16 23:59 23:59 23:59 Intake Total 2495 2790 250 Output Total 925 2295 650 Balance 1570 495 -400 - Lab Results Lab Results: 08/04/16 06:00 08/06/16 05:30 Other Lab Results: Lab Results x24hrs 08/06/16 Range/Units 05:30 Sodium 138 (135-145) mmol/L Potassium 4.2 (3.5-5.0) mmol/L Chloride 101 (101-111) mmol/L Carbon Dioxide 26 (21-32) mmol/L Anion Gap 11.0 (6-13) BUN 7 (6-20) mg/dL Creatinine 0.8 (0.6-1.2) mg/dL Estimated GFR (MDRD) 112 (>89) Glucose 93 (70-100) mg/dL Calcium 9.2 (8.5-10.3) mg/dL - Current Medications Current Medications: Current Medications Generic Name Dose Route Start Last Admin Trade Name Freq PRN Reason Stop Dose Admin Al Hydroxide/Mg Hydroxide 30 ml 08/04/16 19:26 08/04/16 20:16 Mylanta Plus PO 30 ml Q6HR PRN Administration Gas Benzocaine/Butamben/Tetracaine HCl 2 sprays 08/02/16 11:36 08/02/16 11:47 Cetacaine [place] TOP 2 sprays Q6HR PRN Administration NEEDED PER PROVIDER ORDERS Heparin Sodium (Porcine) 5,000 unit 08/02/16 21:00 08/05/16 21:14 SUBQ 5,000 unit BID IVELISSE Administration Famotidine 50 mls @ 100 mls/hr 08/02/16 09:00 08/05/16 21:14 Pepcid 20 Mg/50 Ml IV 100 mls/hr BID IVELISSE Administration Ketorolac Tromethamine 15 mg 08/02/16 18:32 08/03/16 22:37 Toradol Inj IVP 08/07/16 18:31 15 mg Q6HR PRN Administration PAIN Metoclopramide HCl 5 mg 08/04/16 19:39 08/06/16 06:02 Reglan Inj IVP 08/06/16 19:38 5 mg Q6HR IVELISSE Administration Ondansetron HCl 4 mg 08/02/16 03:44 08/03/16 09:55 Zofran Inj IVP 4 mg Q6H PRN Administration Nausea / Vomiting Sodium Chloride 10 ml 08/02/16 03:44 08/05/16 23:57 Normal Saline Flush 0.9% IVP 10 ml PRN PRN Administration NEEDED PER PROVIDER ORDERS Sodium Chloride 10 ml 08/02/16 06:00 08/06/16 06:02 Normal Saline Flush 0.9% IVP 10 ml Q8HR IVELISSE Administration Throat Lozenges 1 lozenge 08/02/16 11:35 08/02/16 11:46 Cepacol MM 1 lozenge Q2HR PRN Administration Mouth Sore Pain - Physical Exam Wound/Incisions: positive: Healing well. negative: Erythema General Appearance: positive: No acute distress, Alert Eyes Bilateral: positive: EOMI ENT: positive: No signs of dehydration Neck: positive: Nml inspection Respiratory: positive: Breath sounds nml Cardiovascular: positive: Regular rate & rhythm Abdomen: positive: Tenderness (+bs, soft ,mild tenderness appropriate. no erythema or discharge. monica intact) Impression/Plan - Problem List Problem List: 31 yo male POD#4 s/p Laparoscopy, Exploratory Laparotomy with internal hernia reduction Advance diet as tolerated. replace electrolytes prn Begin D/c planning
[2016-08-06] MEDS: MAG HYDROX/AL HYDROX/SIMETH 30 ML UDC PO PRN ×2 (08:37→17:02)
[2016-08-06] MEDS: SODIUM CHLORIDE FLUSH 0.9% 10 ML SYRINGE IVP PRN ×2 (08:38→22:11)
[2016-08-06] MEDS: FAMOTIDINE 20 MG/50 ML 50 ML IV SCH ×2 (08:38→21:32)
[2016-08-06] MEDS: HEPARIN 5,000 UNIT/ML VIAL SUBQ SCH ×2 (08:40→21:33)
[2016-08-07] MEDS: KETOROLAC 15 MG/ML VIAL IVP PRN (06:20)
[2016-08-07] MEDS: SODIUM CHLORIDE FLUSH 0.9% 10 ML SYRINGE IVP SCH ×3 (06:20→20:40)
[2016-08-07] MEDS: SODIUM CHLORIDE FLUSH 0.9% 10 ML SYRINGE IVP PRN (06:20)
[2016-08-07] MEDS: FAMOTIDINE 20 MG/50 ML 50 ML IV SCH (09:09)
[2016-08-07] MEDS: HEPARIN 5,000 UNIT/ML VIAL SUBQ SCH ×2 (09:13→20:40)
--- NOTE | 2016-08-07 09:53 | PROVIDER PROGRESS NOTE ---
Subjective - General Admit Date: 08/01/16 Procedure Date: 08/02/16 Post Op Days: 5 Procedure Performed: Laparoscopy, Exploratory Laparotomy with internal hernia reduction - Review of Systems Wound/Incisions: positive: Healing well. negative: Erythema Drain Type: BRITTANY Drain Output Description: serosanguenous Approximate mls Output: 125 General: positive: No symptoms, Weakness HEENT: positive: No symptoms Pulmonary: positive: No symptoms Cardiovascular: positive: No symptoms Gastrointestinal: positive: Nausea, Abdominal pain (Post operative appropriate) , Diarrhea Genitourinary: positive: No symptoms Musculoskeletal: positive: No symptoms Skin: positive: No symptoms Psychiatric: positive: No symptoms All Other Systems: positive: Reviewed and negative Objective - Patient Data Reviewed Vital Signs: Yes Vital Signs: Vital Signs x48h Temp Pulse Resp BP Pulse Ox 08/07/16 08:40 36.8 C 101 H 20 137/86 H 98 Intake & Output: Intake and Output Totals x24h 08/05/16 08/06/16 08/07/16 23:59 23:59 23:59 Intake Total 2790 673 270 Output Total 2295 1255 325 Balance 495 -582 -55 - Lab Results Lab Results: 08/04/16 06:00 08/06/16 05:30 - Current Medications Current Medications: Current Medications Generic Name Dose Route Start Last Admin Trade Name Freq PRN Reason Stop Dose Admin Al Hydroxide/Mg Hydroxide 30 ml 08/04/16 19:26 08/06/16 17:02 Mylanta Plus PO 30 ml Q6HR PRN Administration Gas Benzocaine/Butamben/Tetracaine HCl 2 sprays 08/02/16 11:36 08/02/16 11:47 Cetacaine [place] TOP 2 sprays Q6HR PRN Administration NEEDED PER PROVIDER ORDERS Heparin Sodium (Porcine) 5,000 unit 08/02/16 21:00 08/07/16 09:13 SUBQ 5,000 unit BID IVELISSE Administration Famotidine 50 mls @ 100 mls/hr 08/02/16 09:00 08/07/16 09:09 Pepcid 20 Mg/50 Ml IV Not Given BID IVELISSE Ketorolac Tromethamine 15 mg 08/02/16 18:32 08/07/16 06:20 Toradol Inj IVP 08/07/16 18:31 15 mg Q6HR PRN Administration PAIN Ondansetron HCl 4 mg 08/02/16 03:44 08/03/16 09:55 Zofran Inj IVP 4 mg Q6H PRN Administration Nausea / Vomiting Sodium Chloride 10 ml 08/02/16 03:44 08/07/16 06:20 Normal Saline Flush 0.9% IVP 10 ml PRN PRN Administration NEEDED PER PROVIDER ORDERS Sodium Chloride 10 ml 08/02/16 06:00 08/07/16 06:20 Normal Saline Flush 0.9% IVP 10 ml Q8HR IVELISSE Administration Throat Lozenges 1 lozenge 08/02/16 11:35 08/02/16 11:46 Cepacol MM 1 lozenge Q2HR PRN Administration Mouth Sore Pain - Physical Exam Wound/Incisions: positive: Healing well General Appearance: positive: No acute distress, Alert Abdomen: positive: Other (minimally distended, +BS, appropriate incisional tenderness, brittany drainage serosanguinous) Impression/Plan - Problem List Problem List: A/P: s/p repair of incarcerated hernia. He is ambulating well in [place] with abdominal binder. Has eaten minimal of the regular diet per pt and has had some c/o nausea per nurse. Stool is still mainly liquid. Will hold off on discharge today and see how he does with regular food today. Possible discharge tomorrow.
[2016-08-08] MEDS: SODIUM CHLORIDE FLUSH 0.9% 10 ML SYRINGE IVP SCH (05:32)
[2016-08-08 07:47] VITALS: BP 122/85
[2016-08-08] MEDS: HEPARIN 5,000 UNIT/ML VIAL SUBQ SCH (08:34)
--- NOTE | 2016-08-08 08:56 | Discharge Plan ---
Discharge Plan Disposition: 01 Home, Self Care Condition: Good Diet: Regular Activity Restrictions: wear binder if out of bed (4-6wks: No lifting greater than 15lbs; no stenuous activity; continue walking daily; no running, jogging or bike riding) Shower Restrictions: No (do not allow drain to hang loose) Driving Restrictions: Yes (no driving while taking narcotic pain med) Instruction Topics: Acetaminophen Hydrocodone tablets or capsules, Obstruction Sm Bowel, Hernia, Tube Alejandro Rosales Drainage Care Additional Instructions or Follow Up instructions: States that diarrhea resolved around dinner-time and no diarrhea overnight. No further nausea. He is feeling much better and is ready for discharge home. Incisions are healing well. He will be taught brittany drain care prior to discharge. No Smoking: If you smoke, Please STOP! Call for help. Follow-up with: Imtiaz Mariee DO [Provider Admit Priv/Credential] - 1 Week
== END 2016-08-08 11:45 | disposition home or self-care (01) | DRG 355 ==
LOC: ED 19:58 → MS 22:48 → ED 08-02 00:31
PROVIDERS: ADMIT Surgery; ATTEND Surgery
PROC: 0WQF0ZZ Repair Abdominal Wall, Open Approach (ICD-10-PCS; principal; 2016-08-02)
PROC: 0WJF4ZZ Inspection of Abdominal Wall, Percutaneous Endoscopic Approach (ICD-10-PCS; 2016-08-02)
DX: K46.0 Unspecified abdominal hernia with obstruction, without gangrene (principal)
CPT/HCPCS: 36415; 74177; 80048; 80053; 81001; 83605; 83690; 83735; 84100; 85025; 85610; 85730; 86141; 86850; 86900; 86901; 87070; 87075; 87205; 87339; 96361; 96375; 96376; 99284

== ENCOUNTER 2017-11-08 14:24 | Outpatient (CLI) | payer OTHER ==
[2017-11-08 17:51] LABS: BASOPHILS % (AUTO) 0.8 %; EOSINOPHILS # (AUTO) 0.3 10^3/uL (0.0-0.7); EOSINOPHILS % (AUTO) 5.3 %; HGB - HEMOGLOBIN 14.4 g/dL (14.0-18.0); LYMPHOCYTES # (AUTO) 1.4 10^3/uL (1.5-3.5); MEAN CORPUSCULAR HEMOGLOBIN 29.1 pg (27.0-31.0); MEAN CORPUSCULAR HGB CONC 33.3 g/dL (32.0-36.0); MEAN CORPUSCULAR VOLUME 87.4 fL (80.0-94.0); MONOCYTES # (AUTO) 0.4 10^3/uL (0.0-1.0); MONOCYTES % (AUTO) 7.1 %; NEUTROPHILS # (AUTO) 3.1 10^3/uL (1.5-6.6); NEUTROPHILS % (AUTO) 59.8 %; PLT - PLATELET COUNT 269 10^3/uL (130-450); RED BLOOD COUNT 4.95 10^6/uL (4.70-6.10); RED CELL DISTRIBUTION WIDTH 13.4 % (12.0-15.0); WHITE BLOOD COUNT 5.2 x10^3/uL (4.8-10.8)
[2017-11-08 18:14] LABS: ALBUMIN 4.4 g/dL (3.2-5.5); ALBUMIN/GLOBULIN RATIO 1.5 (1.0-2.2); BILIRUBIN,TOTAL 0.5 mg/dL (0.2-1.0); CREATININE 0.8 mg/dL (0.6-1.2); TOTAL PROTEIN 7.4 g/dL (6.7-8.2)
== END 2017-11-08 14:25 | disposition home or self-care (01) ==
LOC: LAB.F 14:24
PROVIDERS: ATTEND Internal Medicine
DX: R19.7 Diarrhea, unspecified (principal)
CPT/HCPCS: 36415; 80053; 81599; 83516; 84443; 85025

== ENCOUNTER 2018-04-10 14:24 | Outpatient (CLI) | payer OTHER ==
[2018-04-11 13:35] LABS: HEPATITIS C ANTIBODY NON-REACTIVE (NON-REACTIVE); HIV AG/AB 4TH GEN NON-REACTIVE (NON-REACTIVE)
[2018-04-11 13:37] LABS: HEPATITIS B SURFACE ANTIGEN NON-REACTIVE (NON-REACTIVE)
== END 2018-04-10 14:25 | disposition home or self-care (01) ==
LOC: LAB.F 14:24
PROVIDERS: ATTEND Internal Medicine
DX: Z00.00 Encounter for general adult medical examination without abnormal findings (principal)
CPT/HCPCS: 36415; 81599; 86803; 87340; 87389

== ENCOUNTER 2020-10-27 13:56 | Outpatient (CLI) | payer OTHER | END 2020-10-27 13:57 | disposition home or self-care (01) | LOC: COV 13:56 | PROVIDERS: ATTEND Family Medicine | DX: Z20.822 Contact with and (suspected) exposure to COVID-19 (principal) ==